=== PATIENT | female | born 1950 | race Caucasian/White ===

== ENCOUNTER 2017-12-23 12:46 | Outpatient (CLI) | payer MEDICARE, OTHER ==
--- NOTE | 2017-12-23 14:46 | XRAY Report ---
DATE OF SERVICE: 12/23/2017 THREE VIEW LEFT FOOT: 12/23/2017 CLINICAL INDICATION: Foot pain. FINDINGS: AP, lateral, oblique views of the left foot demonstrate postoperative changes in the first, fourth, and fifth toes, as well as the first metatarsal head. There is a nondisplaced fracture of the base of the fifth metatarsal. No other fracture is appreciated. A small posterior calcaneal spur is noted. IMPRESSION: NONDISPLACED FRACTURE OF THE BASE OF THE FIFTH METATARSAL. POSTOPERATIVE CHANGES. TD: 12/23/2017 14:45
== END 2017-12-23 12:47 | disposition home or self-care (01) ==
LOC: DI 12:46
PROVIDERS: ATTEND Internal Medicine
DX: S92.355A Nondisplaced fracture of fifth metatarsal bone, left foot, initial encounter for closed fracture (principal)

== ENCOUNTER 2018-01-24 09:20 | Outpatient (CLI) | payer MEDICARE, OTHER ==
[2018-01-24 09:43] LABS: CREATININE 0.7 mg/dL (0.4-1.0)
[2018-01-24] MEDS ORDERED: GADOBUTROL 7.5 MMOL/7.5 ML VIAL ONE (11:18)
[2018-01-24] MEDS ORDERED: GADOBUTROL 7.5 MMOL/7.5 ML VIAL IVP ONE (12:22)
--- NOTE | 2018-01-24 15:57 | MRI Report ---
MRI OF BILATERAL BREASTS WITH AND WITHOUT CONTRAST: 01/24/2018 CLINICAL INDICATION: A 67-year-old with encapsulated implants, unable to displace for conventional mammography, MRI surveillance. TECHNIQUE: Using a dedicated breast coil, axial precontrast STIR, T1, dynamic postcontrast axial 3-D images, axial 3-D high resolution images, and postcontrast diffusion weighted images were obtained. 5 mL Gadavist was administered intravenously. Post-processing with dynamic contrast enhancement analysis and multiplanar reformations were performed with [employer]. COMPARISON: Previous MRI from [place], [place], dated 11/10/2014. FINDINGS: Bilateral subglandular implants are present, with stable radial folds. There is no evidence of intra- or extracapsular rupture. RIGHT BREAST: No abnormal enhancement is seen in the right breast parenchyma surrounding the implant. No background parenchymal enhancement is appreciated. Right axillary lymph nodes appear morphologically normal. LEFT: No abnormal enhancement is appreciated in the breast parenchyma. No background enhancement is appreciated. The left axillary lymph nodes are morphologically normal. IMPRESSION: NEGATIVE EXAMINATION. RECOMMENDATION: Continue annual MR surveillance, unless otherwise clinically indicated. BIRADS category 1 - negative. COMMENT: Breast MRI is a highly sensitive examination, and has a cancer detection threshold down to approximately 5 mm; however, it only has moderate specificity. Although breast MRI has a high negative predictive value, appropriate clinical and mammographic followup are always necessary. MRI may miss less angiogenic tumors; therefore, it should not be used to avoid a biopsy which is otherwise clinically indicated. Normal appearing lymph nodes may contain microscopic tumor. Due to prone positioning, the described location of findings may differ from other modalities. TD: 01/24/2018 15:56
== END 2018-01-24 09:21 | disposition home or self-care (01) ==
LOC: LAB 09:20 → DI 09:21
PROVIDERS: ATTEND Internal Medicine
DX: Z98.82 Breast implant status (principal); Z79.899 Other long term (current) drug therapy
CPT/HCPCS: 36415; 82565; 84520; A9585; C8908; 77059

== ENCOUNTER 2018-11-09 16:46 | Emergency (ER) | payer MEDICARE, OTHER ==
[2018-11-09 16:57] VITALS: BP 134/58
--- NOTE | 2018-11-09 17:54 | XRAY Report ---
Reason: Pain with twisting/weight bearing Procedure Date: 11/09/2018 Accession Number: [id number] / [id number] Procedure: XR - Hip w/Pelvis 1V LT CPT Code: FULL RESULT: EXAM: LEFT HIP AND PELVIS RADIOGRAPHY EXAM DATE: 11/09/2018 05:30 PM. HISTORY: Pain with twisting/weight bearing. COMPARISONS: None. TECHNIQUE: 1 view of the pelvis and 1 view of the hip. FINDINGS: Bones: Normal. No fracture or bone lesion. Joints: Normal alignment of the left hip joint. Right hip arthroplasty hardware and also shows expected appearance and alignment. Soft Tissues: Normal. No soft tissue swelling. IMPRESSION: 1. No evidence for fracture or dislocation of the pelvis or left hip. RADIA
--- NOTE | 2018-11-09 18:04 | ED Physician Documentation ---
PD HPI LOWER EXT INJURY - Stated complaint Stated Complaint: LEFT LEG HURTING - Chief complaint Chief Complaint: Ext Problem - History obtained from History obtained from: Patient, Family - History of Present Illness PD HPI LOW EXT INJURY LOCATION: Left, Hip Where injury occurred: Home Timing - onset: How many weeks ago (6) Timing - duration: Weeks (6) Timing - details: Gradual onset, Still present, Waxing and waning Improved by: Rest Worsened by: Moving, Palpating Associated symptoms: No: Weakness, Numbness, Tingling, Swelling Contributing factors: No: Anticoagulated Similar symptoms before: Has not had sx before Recently seen: Not recently seen - Additional information Additional information: 68-year-old female with osteoporosis has developed pain in her left trochanter area. She states that the pain is been present for about 6 weeks if she does not know of any specific injury to the area but this is the counter height or her tables in her home and she does know that she hits this area fairly frequently. She is now having increased pain to the area and she is here for evaluation. Review of Systems Constitutional: denies: Fever, Chills, Myalgias Eyes: denies: Decreased vision Ears: denies: Ear pain Nose: denies: Congestion Throat: denies: Sore throat Cardiac: denies: Chest pain / pressure Respiratory: denies: Dyspnea, Cough GI: denies: Abdominal Pain, Nausea, Vomiting : denies: Dysuria, Frequency Musculoskeletal: reports: Extremity pain, Joint pain. denies: Neck pain, Back pain, Extremity swelling, Joint swelling Neurologic: denies: Generalized weakness, Focal weakness, Numbness PD PAST MEDICAL HISTORY - Past Medical History Past Medical History: Yes Musculoskeletal: Osteoarthritis - Past Surgical History Past Surgical History: Yes Ortho: Hip replacement, ACL reconstruction - Allergies Allergies/Adverse Reactions: Allergies Allergy/AdvReac Type Severity Reaction Status Date / Time No Known Drug Allergies Allergy Verified 11/09/18 16:58 - Social History Does the pt smoke?: No Smoking Status: Never smoker Does the pt drink ETOH?: Yes Does the pt have substance abuse?: No - POLST Patient has POLST: No PD ED PE NORMAL - Vitals Vital signs reviewed: Yes (hypertensive ) - General General: Alert and oriented X 3, No acute distress, Well developed/nourished, Other (winches with pain with certain movements of the left hip ) - HEENT HEENT: Atraumatic, PERRL, EOMI - Neck Neck: Supple, no meningeal sign, No bony TTP - Respiratory Respiratory: No respiratory distress - Derm Derm: Normal color, Warm and dry, No rash - Extremities Extremities: No deformity, No edema, Other (There is specific point tenderness to the trochanter laterally and posteriorly to a well defined area. There is pain to palpation and with movement of the hip joint. but not in the joint. ) - Neuro Neuro: Alert and oriented X 3, bladder blower 2-12 intact, No motor deficit, No sensory deficit Eye Opening: Spontaneous Motor: Obeys Commands Verbal: Oriented GCS Score: 15 - Psych Psych: Normal mood, Normal affect Results - Vitals Vitals: Vital Signs - 24 hr 11/09/18 16:53 Heart Rate 79 Respiratory 18 Rate Blood Pressure 134/58 H O2 Saturation 100 Oxygen O2 Source Room air - Rads (name of study) left hip Radiology: Prelim report reviewed (Impression: 1. No evidence for fracture or dislocation of the pelvis or left hip), EMP read indepedently, See rad report PD MEDICAL DECISION MAKING - ED course Complexity details: reviewed results, re-evaluated patient, considered d ifferential, d/w patient, d/w family ED course: 68-year-old female with tenderness to the left trochanter has a negative x-ray she does have pain with any movement of her hip and specifically with point palpation to the trochanter. I suspect she has trochanteric bursitis and she is administered dexamethasone 10 mg orally and I have instructed her to follow-up with orthopedics for the possibility of injection. Departure - Departure Disposition: 01 Home, Self Care Clinical Impression: Bursitis Qualifiers: Bursitis location: hip Hip bursitis location: trochanteric bursitis Laterality: left Qualified Code(s): M70.62 - Trochanteric bursitis, left hip Instructions: Trochanteric Bursitis, ED Bursitis Follow-Up: Joe Byrnes MD [Primary Care Provider] - [facility] [Provider Group]
[2018-11-09] MEDS ORDERED: DEXAMETHASONE 10 MG/ML VIAL PO STA (18:17)
== END 2018-11-09 18:30 | disposition home or self-care (01) ==
LOC: ED 16:46
DX: M70.62 Trochanteric bursitis, left hip (principal)
CPT/HCPCS: 99283

== ENCOUNTER 2019-01-26 11:30 | Outpatient (CLI) | payer MEDICARE, OTHER ==
[2019-01-26 19:47] LABS: H. PYLORIS ANTIGEN STL NEGATIVE (Negative)
== END 2019-01-26 23:59 | disposition home or self-care (01) ==
LOC: LAB.R 11:30
PROVIDERS: ATTEND Family Medicine
DX: R19.7 Diarrhea, unspecified (principal)
CPT/HCPCS: 81599; 82274; 83630; 87045; 87046; 87177; 87209; 87329; 87338; 87493

== ENCOUNTER 2019-01-26 16:06 | Outpatient (CLI) | payer MEDICARE, OTHER | END 2019-01-26 23:59 | disposition home or self-care (01) | LOC: LAB.R 16:06 | PROVIDERS: ATTEND Family Medicine | DX: R19.7 Diarrhea, unspecified (principal) | CPT/HCPCS: 82274 ==

== ENCOUNTER 2019-03-20 14:25 | Outpatient (CLI) | payer MEDICARE, OTHER ==
[2019-03-20 18:42] LABS: BASOPHILS # (AUTO) 0.1 10^3/uL (0.0-0.1); BASOPHILS % (AUTO) 1.1 %; EOSINOPHILS # (AUTO) 0.1 10^3/uL (0.0-0.7); EOSINOPHILS % (AUTO) 1.1 %; HGB - HEMOGLOBIN 13.2 g/dL (12.0-16.0); LYMPHOCYTES # (AUTO) 2.2 10^3/uL (1.5-3.5); LYMPHOCYTES % (AUTO) 36.1 %; MEAN CORPUSCULAR HGB CONC 32.9 g/dL (32.0-36.0); MEAN CORPUSCULAR VOLUME 88.1 fL (81.0-99.0); MEAN PLATELET VOLUME 9.8 fL (7.9-10.8); MONOCYTES # (AUTO) 0.6 10^3/uL (0.0-1.0); MONOCYTES % (AUTO) 9.7 %; NEUTROPHILS # (AUTO) 3.2 10^3/uL (1.5-6.6); PLT - PLATELET COUNT 164 10^3/uL (130-450); RED BLOOD COUNT 4.55 10^6/uL (4.20-5.40); RED CELL DISTRIBUTION WIDTH 14.3 % (12.0-15.0); WHITE BLOOD COUNT 6.2 x10^3/uL (4.8-10.8)
[2019-03-20 18:50] LABS: ALBUMIN/GLOBULIN RATIO 1.4 (1.0-2.2); BILIRUBIN,TOTAL 1.5 mg/dL (0.2-1.0); CALCIUM 9.2 mg/dL (8.5-10.3); CREATININE 0.6 mg/dL (0.4-1.0); TOTAL PROTEIN 6.9 g/dL (6.7-8.2)
== END 2019-03-20 23:59 | disposition home or self-care (01) ==
LOC: LAB.WCP 14:25
PROVIDERS: ATTEND Internal Medicine Gastroenterology
DX: R19.7 Diarrhea, unspecified (principal); E83.52 Hypercalcemia
CPT/HCPCS: 36415; 80053; 85025

== ENCOUNTER 2019-04-02 08:50 | Day surgery (SDC) | payer MEDICARE, OTHER ==
[2019-04-02] MEDS ORDERED: LACTATED RINGERS 1,000 ML IV ONE (08:56)
[2019-04-02] MEDS ORDERED: MIDAZOLAM 2 MG/2 ML VIAL IVP ONE (09:54)
[2019-04-02] MEDS ORDERED: fentaNYL 250 MCG/5 ML VIAL IVP ONE (09:54)
[2019-04-02 11:20] VITALS: BP 123/64
== END 2019-04-02 08:51 | disposition home or self-care (01) ==
LOC: SDS 08:50
PROVIDERS: ATTEND Internal Medicine Gastroenterology
PROC: 0DJD8ZZ Inspection of Lower Intestinal Tract, Via Natural or Artificial Opening Endoscopic (ICD-10-PCS; principal; 2019-04-02 10:00)
DX: K57.30 Diverticulosis of large intestine without perforation or abscess without bleeding (principal); Z86.010 Personal history of colon polyps; E78.00 Pure hypercholesterolemia, unspecified; R01.1 Cardiac murmur, unspecified; Z96.649 Presence of unspecified artificial hip joint
CPT/HCPCS: 45378; J3010; J7120

== ENCOUNTER 2021-04-04 07:42 | Outpatient (CLI) | payer MEDICARE ==
[2021-04-04 08:34] LABS: BASOPHILS # (AUTO) 0.1 10^3/uL (0.0-0.1); BASOPHILS % (AUTO) 1.2 %; EOSINOPHILS # (AUTO) 0.1 10^3/uL (0.0-0.7); EOSINOPHILS % (AUTO) 1.4 %; LYMPHOCYTES # (AUTO) 1.4 10^3/uL (1.5-3.5); LYMPHOCYTES % (AUTO) 27.9 %; MEAN CORPUSCULAR HEMOGLOBIN 28.9 pg (27.0-31.0); MEAN CORPUSCULAR HGB CONC 31.8 g/dL (32.0-36.0); MEAN CORPUSCULAR VOLUME 90.7 fL (81.0-99.0); MEAN PLATELET VOLUME 10.9 fL (7.9-10.8); MONOCYTES # (AUTO) 0.5 10^3/uL (0.0-1.0); NEUTROPHILS # (AUTO) 3.1 10^3/uL (1.5-6.6); NEUTROPHILS % (AUTO) 60.3 %; PLT - PLATELET COUNT 206 10^3/uL (130-450); RED BLOOD COUNT 4.85 10^6/uL (4.20-5.40); RED CELL DISTRIBUTION WIDTH 14.6 % (12.0-15.0); WHITE BLOOD COUNT 5.1 x10^3/uL (4.8-10.8)
[2021-04-04 08:42] LABS: GTT GLUCOSE,FASTING 103 mg/dL (70-100)
[2021-04-04 08:57] LABS: ALBUMIN 3.9 g/dL (3.2-5.5); ALBUMIN/GLOBULIN RATIO 1.3 (1.0-2.2); ALKALINE PHOSPHATASE 39 IU/L (42-121); ALT ALANINE AMINOTRANSFERASE 29 IU/L (10-60); AST ASPARTATE AMINOTRANSFERASE 26 IU/L (10-42); BILIRUBIN,TOTAL 1.5 mg/dL (0.2-1.0); BUN - BLOOD UREA NITROGEN 18 mg/dL (6-20); CALCIUM 9.2 mg/dL (8.5-10.3); CARBON DIOXIDE - CO2 30 mmol/L (21-32); CHLORIDE 104 mmol/L (101-111); CHOL/HDL RATIO 2.3 (<4.4); CHOLESTEROL 249 mg/dL; CREATININE 0.6 mg/dL (0.4-1.0); GFR - MDRD 99 (>89); GLUCOSE 103 mg/dL (70-100); HDL CHOLESTEROL 109 mg/dL; LDL CHOLESTEROL,CALCULATED 128 mg/dL; LDL/HDL RATIO 1.2 (<4.4); POTASSIUM 4.3 mmol/L (3.5-5.0); SODIUM 139 mmol/L (135-145); TOTAL PROTEIN 6.9 g/dL (6.7-8.2); TRIGLYCERIDES 60 mg/dL; VLDL CHOLESTEROL 12 mg/dL
[2021-04-04 09:03] LABS: THYROID STIMULATING HORMONE 0.73 uIU/mL (0.34-5.60)
[2021-04-04 13:02] LABS: ESTIMATED AVERAGE GLUCOSE 120 mg/dL (70-100); HEMOGLOBIN A1c% 5.8 % (4.27-6.07)
== END 2021-04-04 07:43 | disposition home or self-care (01) ==
LOC: LAB 07:42
PROVIDERS: ATTEND Family Medicine
DX: R63.4 Abnormal weight loss (principal); E78.5 Hyperlipidemia, unspecified; M81.0 Age-related osteoporosis without current pathological fracture; R73.9 Hyperglycemia, unspecified
CPT/HCPCS: 36415; 80053; 80061; 82951; 82952; 83036; 83721; 84443; 85025

== ENCOUNTER 2021-05-16 08:58 | Outpatient (CLI) | payer MEDICARE | END 2021-05-16 08:59 | disposition home or self-care (01) | LOC: NS 08:58 | PROVIDERS: ATTEND Family Medicine | DX: Z71.3 Dietary counseling and surveillance (principal); R73.9 Hyperglycemia, unspecified | CPT/HCPCS: 97802 ==

== ENCOUNTER 2023-12-30 07:30 | Outpatient (CLI) | payer MEDICARE ==
--- NOTE | 2023-12-30 17:04 | Ultrasound Report ---
PROCEDURE: Carotid Doppler Complete INDICATIONS: RADIOGRAPHIC CALCIFICATION TECHNIQUE: Color and pulse Doppler interrogation was performed of both carotid systems, with image documentation and velocity measurements. COMPARISON: None. FINDINGS: Right side: Brachial blood pressure: 124/68 mm Hg. Common carotid artery peak systolic velocity: 88 cm/sec. Internal carotid artery peak systolic velocity: 159 cm/sec. Internal carotid artery end diastolic velocity: 69 cm/sec. External carotid artery peak systolic velocity: 96 cm/sec. ICA/CCA peak systolic ratio: 1.8 . Reilly scale imaging description: Small calcified plaque is noted in right carotid bulb. Percent internal carotid artery stenosis: Less than 50 percent stenosis. Vertebral artery: Flow direction is antegrade. Left side: Brachial blood pressure: 132/73 mm Hg. Common carotid artery peak systolic velocity: 82 cm/sec. Internal carotid artery peak systolic velocity: 113 cm/sec. Internal carotid artery end diastolic velocity: 50 cm/sec. External carotid artery peak systolic velocity: 107 cm/sec. ICA/CCA peak systolic ratio: 1.3 . Reilly scale imaging description: Mild atherosclerotic plaque. Percent internal carotid artery stenosis: Less than 50 percent stenosis. Vertebral artery: Flow direction is antegrade. IMPRESSION: 1. In the right internal carotid artery, there is less than 50 percent stenosis based on peak systoli c velocity criteria. 2. In the left internal carotid artery, there is less than 50 percent stenosis based on peak systolic velocity criteria. 3. Antegrade blood flow within the right vertebral artery. 4. Antegrade blood flow within the left vertebral artery. The estimate of stenosis included in the report of the imaging study was calculated using the [facility]-end orsed standards of carotid artery stenosis. Reviewed by: Abundio Callejas MD on 12/30/2023 5:02 PM PST Approved by: Abundio Callejas MD on 12/30/2023 5:02 PM PST Station ID: [id number]
== END 2023-12-30 07:31 | disposition home or self-care (01) ==
LOC: DI 07:30
PROVIDERS: ATTEND Family Medicine
DX: I65.23 Occlusion and stenosis of bilateral carotid arteries (principal)
CPT/HCPCS: 93880